=== PATIENT | male | born 1935 | race Caucasian/White ===

== ENCOUNTER → 2016-03-25 | Outpatient (CLI) | payer OTHER ==
[~2016-03-25] MED LIST: AMLODIPINE BESY10 MG PO; ANDROGEL75 GM; ASPIRIN325 PO; ATORVASTATIN CA40 MG PO; CELEXA20 MG PO; CO Q-10100 MG PO; FISH OIL 1,0001 EAC5 PO; FOLGARD TABLET1 EAC1 PO; GLUCOPHAGE1000 MG PO; GLUCOSAMINE1000 MG PO; HYDROCHLOROTHIA25 M1 PO; IRON325 PO; LANTUS SUBQ; LISINOPRIL40 MG PO; NIACOR500 MG PO; NIASPAN ER 101000 M1 PO; SIMVASTATIN80 MG PO; TYLENOL325 MG PO; VITAMIN D2000 UNI1 PO
--- NOTE | ~2016-03-25 | SLE ---
[facility] [place] [address] POLYSOMNOGRAPHY STUDY Name: KATERINE DEY Room #: REG [facility].#: [id number] Admission: 03/25/16 Attend Phys: Wendie Toledo MD Discharge: Date of : 37 Report #: [id number] THIS REPORT FOR: //name// CC: Hugh Vidal MD A 80-year-old diagnosed with sleep apnea in the past, tried CPAP, lost weight, has stopped using CPAP. COMMENTS: 1. PAC/PVC noted. 2. BiPAP titration. 3. IPAP of 12, EPAP of 8, 13/8, 14/8, 14/10, 15/8, 16/8, 16/, 16/12, 17/, 18/, 19/, /. BiPAP was adjusted secondary to snoring, central events as well as mixed events. At an IPAP of 17, EPAP of 8, the patient was seen for 33 minutes of which 15 minutes was in REM sleep. There were 22 central apneas, apnea-hypopnea index 40 events per recording hour, low sat of 81%. At an IPAP of 16, EPAP of 8, the patient was seen for 7 minutes, all of which was in REM sleep. Snoring noted. AHI was 0. Low sat of 94%. At an IPAP of 21, EPAP of 14, the patient was seen for 91 minutes of which 12.5 minutes was in REM sleep. There were 23 central apneas, 10 hypopneas, apnea-hypopnea index 22 events per sleep hour, low sat of 87%. IMPRESSION: 1. History of obstructive sleep apnea, G47.33. 2. Complex sleep apnea. 3. CPAP intolerance. 4. Premature atrial contractions/premature ventricular contractions. SUGGESTIONS: 1. In addition to specific therapy, the patient should be cautioned regarding driving or operating dangerous machinery unless fully alert. The patient should be cautioned regarding the use of respiratory depressants. 2. Oral appliance or appropriate surgery may be considered with appropriate followup. 3. The usual suggestions for obstructive sleep apnea is recommended. 4. Further discussion regarding central events is recommended. 5. A trial at IPAP of 16, EPAP of 8 is initially recommended. If download is abnormal or the patient does not tolerate, further evaluation is recommended. 6. During our study, a Respironics Simplus medium mask was used with heated humidity. 7. Further evaluation regarding arrhythmia may be considered. 8. If signs and symptoms do not improve with therapy, further evaluation is [address] [address] POLYSOMNOGRAPHY STUDY Name: TIBURCIOKATERINE Syed [facility] [id number] Admission: 03/25/16 Attend Phys: Wendie Toledo MD Discharge: Date of : 37 Report #: [id number] recommended. Please do not hesitate to contact us if we may be of further assistance. <ELECTRONICALLY SIGNED> By: Wendie Toledo MD 04/09/16 2232 2037 2254 Wendie Toledo MD /nt
== END ==
LOC: SLEEPLAB 15:16
DX: G47.33 Obstructive sleep apnea (adult) (pediatric) (principal)

== ENCOUNTER → 2016-06-12 | Outpatient (CLI) | payer OTHER ==
[2016-06-12 14:53] LABS: ABG SAMPLE TYPE ARTERIAL; BE(vivo) 0.4 mmol/L (-2 to +3); HCO3 25.6 mmol/L (22.0-26.0); LACTATE 2.66 mmol/L (0.5-2.0); O2(CT) 17.9 mL/dL (15.0-23.0); O2Hb 95.1 % (92.0-98.0); PO2 88.1 mmHg (80.0-100.0); STICK SITE R.RADIAL; pH 7.392 (7.360-7.450); sO2 96.6 % (92.0-98.0); tCO2 26.9 mmol/L (24.0-30.0)
== END ==
LOC: LAB 14:23 → PUL 14:23
PROVIDERS: Internal Medicine Pulmonary Disease
DX: G47.31 Primary central sleep apnea (principal)

== ENCOUNTER → 2016-12-29 | Outpatient (CLI) | payer OTHER | LOC: RAD 15:29 | DX: R06.09 Other forms of dyspnea (principal) ==

== ENCOUNTER 2019-03-17 07:04 | Observation (INO) | payer OTHER ==
[~2019-03-17] VITALS: Ht 182.9 cm; Wt 104.3 kg
[2019-03-17] VITALS (12 sets, daily range): BP systolic 140–175; BP diastolic 57–87
--- NOTE | ~2019-03-17 | D ---
[facility] [address] DISCHARGE SUMMARY Name: KATERINE DEY Room #: 203-P [facility] [place]#: [id number] Admission: 03/17/19 Attend Phys: German Blackwell MD Discharge: Date of : 36 Report #: [id number] THIS REPORT FOR: //name// CC: German Kilpatrick DATE OF SERVICE: 03/18/2019 FINAL DIAGNOSES: 1. Unstable angina, status post percutaneous coronary intervention. 2. Diabetes mellitus. 3. Hypertension. 4. Hypercholesterolemia. 5. Anemia. HOSPITAL COURSE: Please see the original H and P for full details. He presented with new onset dyspnea with mild levels of physical exertion. A nuclear stress test revealed inferior wall ischemia. He was found to have a severe occlusion in the mid segment of the RCA, undergoing placement of a drug-eluting stent. This was performed via the right radial artery approach. He has remained hemodynamically stable overnight. He will continue on the same medications with the addition of Plavix therapy. He has a followup appointment in a few weeks. FINAL DISPOSITION: Plavix 75 mg daily, aspirin once a day, insulin, metformin, hydrochlorothiazide, amlodipine 5 mg daily, lisinopril 20 mg daily, Lipitor 40 mg. By: 0803 0837 German Blackwell MD /nt
[2019-03-17 07:42] LABS: HEMATOCRIT 36.6 % (42.0-52.0); HEMOGLOBIN 11.9 gm/dL (14.0-18.0); MCH 29.1 pg (26.0-34.0); MCHC 32.6 g/dL (28.0-37.0); MCV 89.1 fL (80.0-100.0); RBC 4.11 mil/uL (4.50-6.00); RDW 13.7 % (10.5-14.5)
[2019-03-17 07:52] LABS: CALCIUM 9.2 mg/dL (8.5-10.1); CREATININE 0.9 mg/dL (0.7-1.3)
[2019-03-17 07:58] LABS: CHOLESTEROL 102 mg/dL (<200); HDL CHOLESTEROL 39 mg/dL (>40); LDL CHOLESTEROL 57 mg/dL (<100); TC:HDL 2.6 Ratio (Not establshd); TRIGLYCERIDE 30 mg/dL (<150); VLDL 6 mg/dL (<40)
--- NOTE | 2019-03-17 08:39 | EKG ---
[place] [address] [facility] [place] [address] ELECTROCARDIOGRAM REPORT Name: KATERINE DEY Room #: REG CLI [facility]#: [id number] Admission: 03/17/19 Attend Phys: German Blackwell MD Discharge: Date of : 37 Report #: [id number] THIS REPORT FOR: //name// [facility] Test Date: 2019-03-17 Test Time: 07:39:23 Pat Name: KATERINE DEY Department: Room: Gender: M Sandblasting Supervisor: Syed RIGGS : 1935 Requested By: German Blackwell Order Number: [id number] MD: Dustin Mcallister Measurements Intervals [place] Rate: 66 P: 50 ND: 182 QRS: -7 QRSD: 92 T: 40 QT: 377 QTc: 395 Interpretive Statements Sinus rhythm Inferior infarct, old Compared to ECG 01/10/2014 17:10:37 Inferior Q waves are more prominent Ventricular premature complex(es) no longer present Electronically Signed On 03-17-2019 8:39:06 AGRICULTURIST by Dustin Mcallister [email or web address] <ELECTRONICALLY SIGNED> By: Dustin Mcallister MD, [facility] 03/17/19838 8 8 Dustin Mcallister MD, [facility] /EPI
--- NOTE | 2019-03-17 13:33 | EKG ---
[place] [address] [facility] [place] [address] ELECTROCARDIOGRAM REPORT Name: KATERINE DEY Room #: 203-P [facility].R.#: [id number] Admission: 03/17/19 Attend Phys: German Blackwell MD Discharge: Date of : 36 Report #: [id number] THIS REPORT FOR: //name// [facility] Test Date: 2019-03-17 Test Time: 10:27:01 Pat Name: KATERINE DEY Department: Room: [facility] Gender: M Cyber Systems Administrator: Syed RIGGS : 1935 Requested By: German Blackwell Order Number: [id number] MD: Dustin Mcallister Measurements Intervals [place] Rate: 71 P: 45 IA: 187 QRS: -7 QRSD: 93 T: 23 QT: 377 QTc: 410 Interpretive Statements Sinus rhythm Inferior infarct, old Compared to ECG 03/17/2019 07:39:23 No significant changes Electronically Signed On 03-17-2019 13:33:08 CHEMICAL DEPENDENCY PROFESSIONAL by Dustin Mcallister [email or web address] <ELECTRONICALLY SIGNED> By: Dustin Mcallister MD, [facility] 03/17/19 1333 102 Dustin Mcallister MD, [facility] /EPI
--- NOTE | 2019-03-17 14:04 | CATHLAB ---
[facility] [place] [address] INVASIVE PROCEDURE REPORT Name: KATERINE DEY Room #: 203-P [facility]#: [id number] Admission: 03/17/19 Attend Phys: German Blackwell MD Discharge: Date of : 36 Report #: [id number] THIS REPORT FOR: //name// APPROVED REPORT Study performed: 03/17/2019 07:30:41 Patient Details Patient Status: Out-Patient Room #: The patient is a 83 year-old male Event Personnel German Blackwell Fagot Maker, Shady Saravia, Leilani Gentile RN RN, Shonda Harrison RTR Scrub Procedures Performed Left Heart Cath w/or w/o Coronaries [id number] [facility] WON Place w/wo Plasty Single RCA [id number] Indication Dyspnea, Positive stress test, Chest pain Risk Factors Hypercholesterolemia, Coronary Artery DiseaseHypertension, Diabetes Previous Procedures/Diagnoses Previous PCI Procedure Narrative The Right Wrist^ was infiltrated with 1% Lidocaine subcutaneous anesthesia. A PINNACLE 4FR Sheath #[id number] sheath was inserted into the Right Radial Artery^. Coronary angiography was performed using coronary diagnostic catheters. The right coronary system was accessed and visualized with a 5FR JR 4 #[id number] catheter. The left coronary system was accessed and visualized with a 5FR JR 4 #[id number] catheter. The left ventricle was accessed and visualized with a 5FR PIG 145 ANGLED #[id number] catheter. Closure device was deployed with a Fr REG VASCBAND. The patient tolerated the procedure well and there were no complications associated with the procedure. There was no hematoma. Intraoperative Conscious Sedation Sedation start time: 8.48 Case end Time: 9.59 Fentanyl 100 mcg Versed 2 mg [facility] [address] [place] [place] [address] INVASIVE PROCEDURE REPORT Name: KATERINE DEY ELDER Room #: 203-P [facility]#: [id number] Admission: 03/17/19 Attend Phys: German Blackwell MD Discharge: Date of : 36 Report #: [id number] Fluoro Time: 17.12 minutes Dose: DAP 25581.00 cGycm2 2479 mGy Contrast Type and Amount: Omnipaque 165 ml Coronary Angiography The patient's coronary anatomy is right dominant. Diagnostic Cath Left Main This is a large caliber vessel, patent with no flow-limiting lesions. LAD There is mild to moderate diffuse disease in the proximal and mid segments of the LAD, with calcifications. Approximately 20-40% stenotic. The distal LAD wraps around the apex. Diagonal 1 This is a small to moderate size caliber vessel, patent with no flow-limiting lesions. Diagonal 2 This is a small to moderate size caliber vessel, patent with no flow-limiting lesions. Circumflex This is a moderate size caliber vessel, with mild disease proximally. OM1 This is a small-caliber vessel with a subtotal occlusion, unchanged from prior procedures. OM2 This is a moderate size caliber vessel, patent with no flow-limiting lesions. Right Coronary This is a dominant vessel with a severe occlusion in the mid segment, 95%. R PDA This is a moderate size caliber vessel, patent with no flow-limiting lesions. RPLV This is a moderate size caliber vessel, patent with no flow-limiting lesions. Left Ventriculography Left Ventriculography was not performed. Ejection Fraction was >55% based off patient's Nuclear Cardiac Stress Test. An LVEDP was measured and there is no gradient across the outflow tract. Hemodynamics The aortic pressure is 125/55 mmHg with a mean of 54 mmHg. The left ventricular pressure is 153/3 mmHg with a mean of mmHg. The left ventricular end diastolic pressure is 17 mmHg. There was no gradient across the aortic valve upon pullback. Pullback from the left ventricle to the aorta revealed no gradient across the aortic valve. PCI Technique Lesion [facility] [address] [place] [address] INVASIVE PROCEDURE REPORT Name: TIBURCIOKATERINE FRIEDMAN Room #: 203-P [facility] M.R.#: [id number] Admission: 03/17/19 Attend Phys: German Blackwell MD Discharge: Date of : 36 Report #: [id number] Percutaneous coronary intervention was performed on the mistal right coronary artery. The lesion stenosis prior to intervention was 95% with MARY 3 flow. A VISTA 6FR JR 4 #[id number] Guide Catheter was used to engage the ostium. A Luge Wire .014 x 182CM #[id number] Interventional Guidewire was used to cross the lesion. BALLOON DILATION A Balloon catheter Euphora RX 2.5 x 12 #[id number] was inserted and inflated up to 10.00atm for 27seconds. Additional Inflation: 12.00atm for 20seconds. STENT DEPLOYMENT A drug-eluting stent XIENCE KIARA RX 2.75 X 18 #[id number] was inserted and inflated up to 12.00atm for 23seconds. POST STENT DEPLOYMENT BALLOON DILATION A Balloon catheter TREK NC RX 3.0 X 12 #[id number] was inserted and inflated up to 18.00atm for 25seconds. Final angiography reveals 0 % stenosis with MARY 3 flow. Conclusion 1. Successful insertion of a drug-eluting stent into the mid segment of the RCA. 2. Mild to moderate disease in the LAD and RCA. 3. 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 Unchanged from prior procedures. 4. Recommend dual antiplatelet therapy and aggressive risk factor management. <ELECTRONICALLY SIGNED> By: German Blackwell MD 03/17/19 1404 1404 1404 German Blackwell MD /INF
--- NOTE | 2019-03-17 14:06 | NUR ---
Chart reviewed. Pt admitted obs s/p cardiac cath with stent. Dtr Shell was here at bedside and notes she can take the pt home tomorrow. Pt now sitting eob on his own. Per the care team, no dc planning needs anticipated.
--- NOTE | 2019-03-17 18:58 | NUR ---
ASSUMED CARE FOR PT AT APPROX 1000. ADMISSION ORDERS AND ASSESSMENT COMPLETE. MEDS GIVEN PER MAY. RADIAL CATH SITE CDI. PT IS A&OX4. NO C/O PAIN. PLAN TO DISCHARGE IN THE MORNING. WILL CONTINUE TO MONITOR AND FOLLOW POC.
[2019-03-18 00:53] VITALS: BP 153/71
[2019-03-18 04:45] VITALS: BP 147/68
[2019-03-18 04:58] LABS: HEMATOCRIT 34.3 % (42.0-52.0); HEMOGLOBIN 11.5 gm/dL (14.0-18.0); MCH 29.3 pg (26.0-34.0); MCHC 33.4 g/dL (28.0-37.0); MCV 87.9 fL (80.0-100.0); RBC 3.91 mil/uL (4.50-6.00); RDW 13.9 % (10.5-14.5); WBC 5.5 thou/uL (4.0-11.0)
[2019-03-18 05:09] LABS: ALBUMIN 3.4 g/dL (3.4-5.0); CALCIUM 8.7 mg/dL (8.5-10.1); CREATININE 0.8 mg/dL (0.7-1.3); POTASSIUM 3.6 mmol/L (3.5-5.1); TOTAL BILIRUBIN 0.5 mg/dL (<0.1-1.0); TOTAL PROTEIN 6.5 g/dL (6.4-8.2)
--- NOTE | 2019-03-18 06:25 | NUR ---
ASSUME CARE 1900. PT/VITALS STABLE. DENIES ANY PAIN. UP AD KORI. ADEQUATE REST NOTED WITH NO DISTRESS. SR ON MONITOR. ASSESSMENT CHARTED. PROGRESSING WELL WITH POC. RIGHT RASIAL SITE CDI WITH 2+ PULSE FELT AT SITE. PLAN IS POSSIBLE DISCHARGE TODAY. WILL CONITNUE TO MONITOR AND FOLLOW WITH POC
[2019-03-18 07:35] VITALS: BP 141/75
[2019-03-18] MEDS ORDERED: PLAVIX 75 MG TA75 M1 PO (07:58)
[2019-03-18 10:30] VITALS: BP 141/75
--- NOTE | 2019-03-18 11:10 | NUR ---
ASSUMED CARE OF PT AT SHIFT CHANGE. ASSESSMENT CHARTED. MEDS GIVEN PER MAY. VSS. NO C/O PAIN. PT A&OX4, UP AD KORI. DISCHARGE ORDERS AND INSTRUCTIONS COMPLETE. TELE AND IV DC'D. PT WALKED TO MAIN ENTRANCE WITH DAUGHTER TO HER CAR.
[2019-03-18 11:14] VITALS: BP 141/75
--- NOTE | 2019-03-18 13:42 | EKG ---
[place] [address] [facility] [place] [address] ELECTROCARDIOGRAM REPORT Name: KATERINE DEY Room #: 203-[facility].#: [id number] Admission: 03/17/19 Attend Phys: German Blackwell MD Discharge: 03/18/19 Date of : 37 Report #: [id number] THIS REPORT FOR: //name// [facility] Test Date: 2019-03-18 Test Time: 07:49:58 Pat Name: KATERINE DEY Department: Room: 203 Gender: M Relocation Director: JOCELYN : 1935 Requested By: German Blackwell Order Number: [id number] MD: Dustin Mcallister Measurements Intervals [place] Rate: 64 P: 60 NE: 172 QRS: -7 QRSD: 94 T: 35 QT: 387 QTc: 400 Interpretive Statements Sinus rhythm Inferior infarct, old Compared to ECG 03/17/2019 10:27:01 No significant changes Electronically Signed On 03-18-2019 13:42:25 MAP CLERK by Dustin Mcallister [email or web address] <ELECTRONICALLY SIGNED> By: Dustin Mcallister MD, [facility] 03/18/19 1342 0749 Dustin Mcallister MD, [facility] /EPI
== END 2019-03-18 10:45 | disposition home or self-care (01) ==
LOC: CATH 07:04 → 2N 10:27 → CATH 12:05 → 2N 03-18 10:45
PROVIDERS: ADMIT Internal Medicine Cardiovascular Disease
DX: I25.110 Atherosclerotic heart disease of native coronary artery with unstable angina pectoris (principal); E11.9 Type 2 diabetes mellitus without complications; I10 Essential (primary) hypertension; E78.00 Pure hypercholesterolemia, unspecified; D64.9 Anemia, unspecified; Z79.01 Long term (current) use of anticoagulants; Z79.82 Long term (current) use of aspirin; Z79.4 Long term (current) use of insulin; Z79.899 Other long term (current) drug therapy

== ENCOUNTER → 2019-03-31 | Outpatient (CLI) | payer OTHER ==
[~2019-03-31] MED LIST changes: +PLAVIX 75 MG TA75 M1 PO
== END | disposition home or self-care (01) ==
LOC: SJCVC 11:56
DX: I25.10 Atherosclerotic heart disease of native coronary artery without angina pectoris (principal); I10 Essential (primary) hypertension; E11.9 Type 2 diabetes mellitus without complications; E78.00 Pure hypercholesterolemia, unspecified; E78.5 Hyperlipidemia, unspecified; R60.9 Edema, unspecified; Z79.82 Long term (current) use of aspirin; Z79.84 Long term (current) use of oral hypoglycemic drugs; Z79.4 Long term (current) use of insulin; Z82.49 Family history of ischemic heart disease and other diseases of the circulatory system; Z87.891 Personal history of nicotine dependence

== ENCOUNTER 2019-08-29 13:04 | Emergency (ER) | payer OTHER ==
[~2019-08-29] VITALS: Ht 182.9 cm; Wt 104.3 kg
[2019-08-29 14:20] LABS: BASOPHILS 0.2 % (0.0-2.0); EOSINOPHILS 0.3 % (0.0-3.0); HEMATOCRIT 36.8 % (42.0-52.0); HEMOGLOBIN 12.4 gm/dL (14.0-18.0); LYMPHOCYTES 13.2 % (24.0-44.0); MCH 29.7 pg (26.0-34.0); MCHC 33.7 g/dL (28.0-37.0); MONOCYTES 6.6 % (1.0-8.0); PLATELET COUNT 233 thou/uL (150-400); POLYS 79.7 % (36.0-66.0); RBC 4.18 mil/uL (4.50-6.00); RDW 13.9 % (10.5-14.5); WBC 7.5 thou/uL (4.0-11.0)
[2019-08-29 14:26] LABS: ANION GAP 6 mmol/L (7-16); BUN 12 mg/dL (7-18); CALCIUM 8.8 mg/dL (8.5-10.1); CHLORIDE 90 mmol/L (98-107); CO2 30 mmol/L (21-32); GLUCOSE 213 mg/dL (74-106); POTASSIUM 3.8 mmol/L (3.5-5.1); SODIUM 126 mmol/L (136-145)
[2019-08-29 14:36] LABS: ALBUMIN 3.8 g/dL (3.4-5.0); MAGNESIUM 1.3 mg/dL (1.8-2.4); SGOT 20 U/L (15-37); SGPT 29 U/L (30-65); TOTAL BILIRUBIN 0.8 mg/dL (0.2-1.0); TOTAL PROTEIN 6.8 g/dL (6.4-8.2); TROPONIN-I <0.06 ng/mL (<0.06)
[2019-08-29 15:11] LABS: URINE BILIRUBIN NEGATIVE (Negative); URINE BLOOD NEGATIVE (Negative); URINE CLARITY CLEAR; URINE COLOR YELLOW; URINE GLUCOSE-RANDOM* 2+ (Negative); URINE KETONES 1+ (Negative); URINE LEUKOCYTES-REFLEX NEGATIVE (Negative); URINE NITRITE-REFLEX NEGATIVE (Negative); URINE PROTEIN (DIPSTICK) TRACE (Negative)
[2019-08-29] MEDS ORDERED: CELEXA 20 MG TA20 MG PO (15:15)
[2019-08-29] MEDS ORDERED: LIPITOR40 MG PO (15:16)
[2019-08-29] MEDS ORDERED: FLOMAX0.4 MG PO (15:16)
[2019-08-29 17:33] VITALS: BP 163/84
--- NOTE | 2019-08-30 08:42 | EKG ---
[facility] [place] [address] ELECTROCARDIOGRAM REPORT Name: KATERINE DEY [facility] [id number] Admission: 08/29/19 Attend Phys: Discharge: 08/29/19 Date of : 37 Report #: [id number] THIS REPORT FOR: cc: Hugh Kilpatrick,Hugh Dawn,Dustin Baeza MD [facility] ~ THIS REPORT FOR: //name// [facility] Test Date: 2019-08-29 Test Time: 13:28:21 Pat Name: KATERINE DEY Department: Room: Gender: [employer]: SELAM Bello : 1935 Requested By: Miroslava Colvin Order Number: [id number] MD: Dustin Mcallister Measurements Intervals [place] Rate: 90 P: 49 ME: 167 QRS: -1 QRSD: 93 T: 68 QT: 333 QTc: 408 Interpretive Statements Sinus rhythm Multiple ventricular premature complexes Poor R wave progression Compared to ECG 03/18/2019 07:49:58 Ventricular premature complex(es) now present Electronically Signed On 08-30-2019 8:41:08 CDT by Dustin Mcallister [email or web address] <ELECTRONICALLY SIGNED> By: Dustin Mcallister MD, [facility] 08/30/19 0841 1328 1328 Dustin Mcallister MD, [facility] /EPI
== END 2019-08-29 17:33 | disposition home or self-care (01) ==
LOC: ER 13:04
PROVIDERS: Physician Assistant
DX: R53.83 Other fatigue (principal); E87.1 Hypo-osmolality and hyponatremia; I10 Essential (primary) hypertension; E11.9 Type 2 diabetes mellitus without complications; K21.9 Gastro-esophageal reflux disease without esophagitis; E78.5 Hyperlipidemia, unspecified; I25.10 Atherosclerotic heart disease of native coronary artery without angina pectoris; Z79.4 Long term (current) use of insulin; Z79.899 Other long term (current) drug therapy; Z88.5 Allergy status to narcotic agent; Z87.891 Personal history of nicotine dependence; Z79.01 Long term (current) use of anticoagulants; Z03.818 Encounter for observation for suspected exposure to other biological agents ruled out

== ENCOUNTER → 2019-09-26 | Outpatient (CLI) | payer OTHER ==
[~2019-09-26] MED LIST changes: +CELEXA 20 MG TA20 MG PO; +FLOMAX0.4 MG PO; +HUMALOG100 UNIT/1 SUBQ; +LIPITOR40 MG PO; +LISINOPRIL-HCT1 EAC1 PO; +TOPROL XL50 MG PO; +ULTRAM 50MG TAB50 MG PO
== END ==
LOC: SJCVC 11:13
PROVIDERS: ATTEND Internal Medicine Cardiovascular Disease
DX: I25.10 Atherosclerotic heart disease of native coronary artery without angina pectoris (principal); I10 Essential (primary) hypertension; E78.00 Pure hypercholesterolemia, unspecified; R60.9 Edema, unspecified; E78.5 Hyperlipidemia, unspecified; E11.9 Type 2 diabetes mellitus without complications; Z79.82 Long term (current) use of aspirin; Z79.899 Other long term (current) drug therapy; Z79.4 Long term (current) use of insulin; Z82.49 Family history of ischemic heart disease and other diseases of the circulatory system; Z87.891 Personal history of nicotine dependence

== ENCOUNTER 2019-10-12 11:14 | Emergency (ER) | payer OTHER ==
[~2019-10-12] VITALS: Ht 182.9 cm; Wt 106.6 kg
[~2019-10-12 11:14] MED LIST changes: -HUMALOG100 UNIT/1 SUBQ; -LISINOPRIL-HCT1 EAC1 PO; -TOPROL XL50 MG PO; -ULTRAM 50MG TAB50 MG PO
[2019-10-12] MEDS ORDERED: HUMALOG100 UNIT/1 SUBQ (12:25)
[2019-10-12] MEDS ORDERED: TOPROL XL50 MG PO (12:26)
[2019-10-12] MEDS ORDERED: LISINOPRIL-HCT1 EAC1 PO (12:27)
[2019-10-12 12:29] LABS: CALCIUM 9.1 mg/dL (8.5-10.1); POTASSIUM 4.1 mmol/L (3.5-5.1)
[2019-10-12 12:32] LABS: ABSOLUTE NEUTROPHILS 5.5 thou/uL (1.4-8.2); BASOPHILS 0.4 % (0.0-2.0); EOSINOPHILS 0.6 % (0.0-3.0); HEMATOCRIT 36.9 % (42.0-52.0); HEMOGLOBIN 12.3 gm/dL (14.0-18.0); LYMPHOCYTES 12.5 % (24.0-44.0); MCH 30.1 pg (26.0-34.0); MCHC 33.4 g/dL (28.0-37.0); MCV 89.9 fL (80.0-100.0); MONOCYTES 6.6 % (1.0-8.0); PLATELET COUNT 233 thou/uL (150-400); POLYS 79.9 % (36.0-66.0); RDW 14.1 % (10.5-14.5); WBC 6.9 thou/uL (4.0-11.0)
[2019-10-12 12:34] LABS: TOTAL BILIRUBIN 0.8 mg/dL (0.2-1.0); TOTAL PROTEIN 7.3 g/dL (6.4-8.2)
[2019-10-12] MEDS ORDERED: ULTRAM 50MG TAB50 MG PO (12:40)
[2019-10-12 13:35] LABS: URINE BILIRUBIN NEGATIVE (Negative); URINE BLOOD NEGATIVE (Negative); URINE CLARITY CLEAR; URINE COLOR YELLOW; URINE GLUCOSE-RANDOM* 1+ (Negative); URINE KETONES TRACE (Negative); URINE LEUKOCYTES-REFLEX NEGATIVE (Negative); URINE NITRITE-REFLEX NEGATIVE (Negative); URINE PROTEIN (DIPSTICK) NEGATIVE (Negative); URINE UROBILINOGEN 0.2 E.U./dl (0.2-1.0)
[2019-10-12 14:20] VITALS: BP 143/71
== END 2019-10-12 14:22 | disposition home or self-care (01) ==
LOC: ER 11:14
PROVIDERS: Physician Assistant
DX: M48.00 Spinal stenosis, site unspecified (principal); I10 Essential (primary) hypertension; E11.9 Type 2 diabetes mellitus without complications; E78.5 Hyperlipidemia, unspecified; I25.10 Atherosclerotic heart disease of native coronary artery without angina pectoris; Z79.01 Long term (current) use of anticoagulants; Z79.899 Other long term (current) drug therapy

== ENCOUNTER → 2020-04-12 | Outpatient (CLI) | payer OTHER ==
[~2020-04-12] MED LIST changes: +HUMALOG100 UNIT/1 SUBQ; +LISINOPRIL-HCT1 EAC1 PO; +TOPROL XL50 MG PO; +ULTRAM 50MG TAB50 MG PO
== END ==
LOC: SJCVCIMAG 03-28 09:01
PROVIDERS: ATTEND Internal Medicine Cardiovascular Disease
DX: I34.0 Nonrheumatic mitral (valve) insufficiency (principal); R94.31 Abnormal electrocardiogram [ECG] [EKG]; R60.9 Edema, unspecified; I25.10 Atherosclerotic heart disease of native coronary artery without angina pectoris; I10 Essential (primary) hypertension; E78.00 Pure hypercholesterolemia, unspecified; R53.83 Other fatigue; E78.5 Hyperlipidemia, unspecified; G47.33 Obstructive sleep apnea (adult) (pediatric); E11.9 Type 2 diabetes mellitus without complications; Z98.890 Other specified postprocedural states; Z88.8 Allergy status to other drugs, medicaments and biological substances; Z79.82 Long term (current) use of aspirin; Z79.4 Long term (current) use of insulin; Z79.899 Other long term (current) drug therapy; Z87.891 Personal history of nicotine dependence; Z82.49 Family history of ischemic heart disease and other diseases of the circulatory system

== ENCOUNTER 2020-05-28 11:27 | Emergency (ER) | payer OTHER ==
[~2020-05-28] VITALS: Ht 182.9 cm; Wt 108.9 kg
[2020-05-28 12:01] LABS: URINE BILIRUBIN NEGATIVE (Negative); URINE BLOOD NEGATIVE (Negative); URINE CLARITY CLEAR; URINE COLOR YELLOW; URINE GLUCOSE-RANDOM* NEGATIVE (Negative); URINE KETONES NEGATIVE (Negative); URINE LEUKOCYTES-REFLEX NEGATIVE (Negative); URINE NITRITE-REFLEX NEGATIVE (Negative); URINE PROTEIN (DIPSTICK) NEGATIVE (Negative); URINE SPECIFIC GRAVITY 1.015 (1.005-1.035); URINE UROBILINOGEN 0.2 E.U./dl (0.2-1.0)
[2020-05-28 12:06] LABS: ABSOLUTE NEUTROPHILS 5.1 thou/uL (1.4-8.2); BASOPHILS 0.4 % (0.0-2.0); EOSINOPHILS 1.5 % (0.0-3.0); HEMATOCRIT 37.3 % (42.0-52.0); HEMOGLOBIN 12.6 gm/dL (14.0-18.0); LYMPHOCYTES 19.1 % (24.0-44.0); MCHC 33.7 g/dL (28.0-37.0); MONOCYTES 7.7 % (1.0-8.0); PLATELET COUNT 233 thou/uL (150-400); POLYS 71.3 % (36.0-66.0); WBC 7.1 thou/uL (4.0-11.0)
[2020-05-28 12:17] LABS: ANION GAP 5 mmol/L (7-16); BUN 21 mg/dL (7-18); CALCIUM 9.3 mg/dL (8.5-10.1); CHLORIDE 92 mmol/L (98-107); CO2 30 mmol/L (21-32); CREATININE 1.1 mg/dL (0.7-1.3); GLUCOSE 109 mg/dL (74-106); POTASSIUM 4.1 mmol/L (3.5-5.1); SODIUM 127 mmol/L (136-145)
[2020-05-28 12:29] LABS: MAGNESIUM 1.8 mg/dL (1.8-2.4); SGOT 23 U/L (15-37); SGPT 33 U/L (16-63); TOTAL BILIRUBIN 0.4 mg/dL (0.2-1.0); TOTAL PROTEIN 7.5 g/dL (6.4-8.2); TROPONIN-I <0.06 ng/mL (<0.06)
[2020-05-28] MEDS ORDERED: GLIMEPIRIDE4 MG PO (12:43)
[2020-05-28] MEDS ORDERED: ZPAK PO (14:13)
[2020-05-28 14:22] VITALS: BP 146/77
--- NOTE | 2020-05-30 07:05 | EKG ---
[place] [address] [facility] [address] ELECTROCARDIOGRAM REPORT Name: KATERINE DEY Room #: DEP [place]#: [id number] Admission: 05/28/20 Attend Phys: Discharge: 05/28/20 Date of : 37 Report #: [id number] Test Date: 2020-05-28 Test Time: 12:45:55 Pat Name: KATERINE DEY Department: Room: Gender: M Medical Scheduler: fahad : 1935 Requested By: Graham Duggan Order Number: [id number] MD: Mookie Harper Measurements Intervals [place] Rate: 78 P: 12 OR: 68 QRS: -19 QRSD: 94 T: 72 QT: 359 QTc: 409 Interpretive Statements Sinus rhythm Short OR interval Inferior infarct, old Compared to ECG 08/29/2019 13:28:21 Short OR interval now present Myocardial infarct finding now present Ventricular premature complex(es) no longer present Poor R-wave progression no longer present Electronically Signed On 05-30-2020 7:05:32 CDT by Mookie Harper [email or web address] <ELECTRONICALLY SIGNED> By: Mookie Harper MD, [facility] 05/30/20 0705 1245 1245 Mookie Harper MD, [facility] /EPI
== END 2020-05-28 14:23 | disposition home or self-care (01) ==
LOC: ER 11:27
PROVIDERS: Nurse Practitioner
DX: R53.1 Weakness (principal); J18.9 Pneumonia, unspecified organism; E87.1 Hypo-osmolality and hyponatremia; I10 Essential (primary) hypertension; E78.5 Hyperlipidemia, unspecified; I25.10 Atherosclerotic heart disease of native coronary artery without angina pectoris; E11.9 Type 2 diabetes mellitus without complications; Z86.2 Personal history of diseases of the blood and blood-forming organs and certain disorders involving the immune mechanism; Z79.4 Long term (current) use of insulin; Z79.01 Long term (current) use of anticoagulants; Z79.82 Long term (current) use of aspirin; Z79.899 Other long term (current) drug therapy; Z88.8 Allergy status to other drugs, medicaments and biological substances

== ENCOUNTER → 2020-06-01 | Outpatient (CLI) | payer OTHER ==
[~2020-06-01] MED LIST changes: +GLIMEPIRIDE4 MG PO; +ZPAK PO
== END ==
LOC: RAD 15:39
PROVIDERS: ATTEND Nurse Practitioner
DX: J18.9 Pneumonia, unspecified organism (principal); R06.02 Shortness of breath; J91.8 Pleural effusion in other conditions classified elsewhere

== ENCOUNTER → 2020-12-24 | Outpatient (CLI) | payer OTHER | LOC: SJCVCIMAG 10:04 | PROVIDERS: ATTEND Internal Medicine Cardiovascular Disease | DX: I25.10 Atherosclerotic heart disease of native coronary artery without angina pectoris (principal); I10 Essential (primary) hypertension; E78.00 Pure hypercholesterolemia, unspecified; R60.9 Edema, unspecified; Z79.82 Long term (current) use of aspirin; Z79.899 Other long term (current) drug therapy; Z79.4 Long term (current) use of insulin; Z87.891 Personal history of nicotine dependence ==